=== PATIENT | female | born 1965 | race Caucasian/White ===

== ENCOUNTER 2020-01-28 19:07 | Observation (INO) | payer BC, SELFPAY ==
[2020-01-28 19:46] VITALS: BP 131/79; PULSE 102; RESP 18; TEMP 36.2; O2SAT 93; BMI 25.2
--- NOTE | 2020-01-28 21:32 | XRR_ITS ---
PROCEDURE INFORMATION: Exam: XR Left Foot Complete Exam date and time: 01/28/2020 9:50 PM Age: 54 years old Clinical indication: Pain; Foot; Left; Additional info: Pain, swelling, diabetic TECHNIQUE: Imaging protocol: XR Left foot. Views: 3 or more views. COMPARISON: No relevant prior studies available. FINDINGS: Bones/joints: No fracture. No dislocation. Mild degeneration between the head of the 1st metatarsal and the sesamoid bones. Tiny calcaneal plantar spur. Soft tissues: There is soft tissue swelling in the forefoot and dorsum of the midfoot. XR/XR foot LT min 3V* [id number] IMPRESSION: No acute osseous abnormality.
--- NOTE | 2020-01-28 21:32 | USCV_ITS ---
Cyndi Weinberg Age: 54 Gender: F : 1965 Exam Date: 01/28/2020 21:58 Ordering Phys: Mady Rubin DO Technologist: Ernie Thornton Exam Location: [facility] [place]ication: PAIN AND BURNING IN FEET Risk Factors: Smoker DIABETIC Previous Vascular Surgery: RIGHT LEFT BP: 140.0 / 80.00 BP: 140.0/ 80.00 0 0 Waveform Velocity (cm/s) Velocity (cm/s) Waveform Triphasic 116.8 Iliac Prox 109.4 Triphasic Triphasic 107.2 Iliac Mid 105.2 Triphasic Triphasic 107.2 Iliac Distal 107.3 Triphasic Biphasic 121.0 WELFARE ADMINISTRATOR 112.6 Triphasic Triphasic 104.5 SFA Prox 163.6 Triphasic Triphasic 122.3 SFA Mid 141.9 Triphasic Triphasic SFA Dist Monophasic 129.2 121.8 Triphasic 68.0 POP 83.5 Triphasic Triphasic 80.7 PUBLIC ACCOUNTANT 71.8 Biphasic Biphasic 76.0 DPA 66.0 Triphasic 1.0 SADIE 1.0 FINDINGS Normal resting ABIs bilaterally Near normal arterial Doppler waveforms and Doppler velocities No significant plaques or unstable lesions noted CONCLUSIONS No significant arterial obstruction, based on the above findings Dr Juice Bryant MD [facility] (Electronically Signed) Final Date: 30 January 2020 08:51 S
--- NOTE | 2020-01-28 21:32 | XRR_ITS ---
PROCEDURE INFORMATION: Exam: XR Right Foot Complete Exam date and time: 01/28/2020 9:49 PM Age: 54 years old Clinical indication: Pain; Foot; Right; Additional info: Pain, swelling, diabetic TECHNIQUE: Imaging protocol: XR Right foot. Views: 3 or more views. COMPARISON: No relevant prior studies available. FINDINGS: Bones/joints: No fracture. No dislocation. Mild degeneration between the head of the 1st metatarsal and the sesamoid bones. Tiny calcaneal plantar spur. Soft tissues: There is soft tissue swelling in the forefoot and dorsum of the midfoot. XR/XR foot RT min 3V* [id number] IMPRESSION: No acute osseous abnormality.
--- NOTE | 2020-01-28 21:33 | ED_ITS ---
HPI - Extremity Problem General: Chief complaint: Extremity Injury, Lower Stated complaint: feet pain/ diabetic/ swelling Time Seen by Provider: 01/28/20 21:29 Source: patient Mode of arrival: ambulatory Limitations: no limitations History of Present Illness: HPI Narrative: Mel is a nice 54-year-old female who comes in after she developed sores and blisters on her toes. Patient thinks this is secondary to wearing new shoes that did not fit well. She has a history of diabetes. Patient states that the pain just came up over the past 4 days. She has a history of diabetic neuropathy and she believes she did not feel that she is rubbing on her toes. She denies any other systemic symptoms or other complaints. Otherwise the patient states she feels good at this time. Associated symptoms: Deny chest pain, fever(s) or rash Review of Systems Const: Denies: fever(s), chills, body aches, fatigue, malaise or diaphoresis Eyes: Denies: change in vision, blurry vision, photophobia, eye discomfort, eye discharge or eye redness ENMT: Denies: throat pain, odynophagia, hoarseness, swelling of lips/tongue, ear or mastoid pain, ear discharge, change in hearing or nasal discharge Card: Denies: chest pain, palpitations, irregular heart rhythm, edema, l ightheadedness, syncope, pre-syncope, dyspnea on exertion or orthopnea Resp: Denies: dyspnea, productive cough, non-productive cough, wheezing, h emoptysis or chest congestion GI: Denies: abdominal pain, nausea, vomiting, hematemesis, coffee ground emesis, heartburn, diarrhea, constipation, GI cramping, hematochezia or melena : Denies: flank pain, dysuria, urinary frequency, urinary urgency or hematuria Musc: Denies: neck pain, back pain, extremity swelling, joint pain, joint swelling, joint redness, joint warmth or joint stiffness Skin/Breast: Denies: rash, pruritus, erythema or skin tenderness Neuro: Denies: headache(s), numbness in extremities, weakness in extremities, sensory changes, lack of coordination, difficulty walking, dizziness, vertigo, confusion, Slurred speech present or seizure-like activity Willis/Lymph: Denies: easy bruising, easy bleeding, petechiae, purpura or enlarged lymph nodes All/Imm: Denies: urticaria, throat swelling, tongue swelling, facial swelling or acute wheezing PFSH ED PFSH: Medical History Chronic back pain DM type 2 (diabetes mellitus, type 2) Hypertension Hypothyroidism Physical Exam Const: COMMON NORMALS: no acute distress, patient oriented x3, no limitations, healthy appearing and well nourished GENERAL APPEARANCE: cooperative, well kempt and well developed HENMT: COMMON NORMALS: normocephalic, atraumatic, external ears normal, EAC's normal and Normal external nose present HEAD & SCALP: normal to inspection, normocephalic and atraumatic FACE & SINUS: normal facial exam and face symmetric NOSE: Normal external nose present and Normal nares present EXTERNAL EAR: Yes external ears normal EXTERNAL AUDITORY CANAL: EAC's normal MOUTH: Normal oral and palatal mucosa present, lip normal and tongue normal Eye: COMMON NORMALS: Equal, round and reactive pupils present and conjunctivae normal GENERAL EYE: appearance normal, both eyes and all related structures ALIGNMENT: Yes alignment normal PERIORBITAL: periorbital findings normal EYELID: eyelids normal CONJUNCTIVA: Yes conjunctivae normal SCLERA: sclerae normal PUPIL: Yes Equal, round and reactive pupils present Neck/C-Spine: COMMON NORMALS: full ROM, no lymphadenopathy, supple, no meningeal signs and no JVD GENERAL: Yes normal visual inspection and Yes trachea midline Chest: COMMONS NORMALS: normal inspection of the chest and normal palpation of entire chest wall Resp: COMMON NORMALS: normal respiratory effort, No retractions, No use of accessory muscles and clear to auscultation bilaterally EFFORT & INSPECTION: Yes able to speak in complete sentences and Yes symmetric chest movement AUSCULTATION: clear to auscultation bilaterally, no crackles, no rales, no rhonchi and no wheezes Cardio: COMMON NORMALS: no JVD, regular rate, regular rhythm, S1 normal heart sound present and S2 normal heart sound present RATE: regular rate RHYTHM: regular rhythm HEART SOUNDS: S1 normal heart sound present, S2 normal heart sound present, no click, no gallops, no murmurs, no rubs and abnormal split S2 GI: COMMON NORMALS: Soft to palpation and No hepatosplenomegaly present PALPATION: Yes Soft to palpation, No Tenderness to palpation present (GI), No Guarding due to palpation present (GI), No Rigid due to palpation, Yes No hepatosplenomegaly present, No Hernia present, No Palpable mass present and No Pulsatile mass present : COMMON NORMALS: Yes no CVA tenderness BLADDER/KIDNEY EXAM: Yes no CVA tenderness EXTERNAL FEMALE EXAM: No Hernia present Back/Pelvis: COMMON NORMALS: no CVA tenderness, thoracic and lumbar spine nor mal to inspection, no thoracic nor lumbar tenderness and thoraco-lumbar ROM normal Extremity: COMMON NORMALS: full ROM, capillary refill normal, no joint enlargement, no clubbing, cyanosis or edema and no calf tenderness NARRATIVE EXTREMITY EXAM: Right foot with infection of the first 3 toes, left foot with infection and cellulitis of the second toe. Neuro: COMMON NORMALS: patient oriented x3, CN's II-XII intact bilaterally, moves all extremities, no focal motor deficits and no sensory deficits noted MENINGEAL SIGNS: Yes no meningeal signs SPEECH: speech normal Psych: COMMON NORMALS: mental status grossly normal, Normal thought process present, cooperative, normal affect, speech normal and activity/motor behavior normal APPEARANCE: Yes well kempt SPEECH: Yes normal speech THOUGHT PRO CESS: Normal thought process present Skin: COMMON NORMALS: no rashes or lesions noted, turgor normal, no jaundice, no petechiae and no mottling GENERAL SKIN EXAM: no rashes or lesions noted and turgor normal Course Vital Signs: Vital signs: Vital Signs Temperature 97.1 F L 01/28/20 19:46 Pulse Rate 102 H 01/28/20 19:46 Respiratory Rate 18 01/28/20 19:46 Blood Pressure 131/79 01/28/20 19:46 Pulse Oximetry 93 01/28/20 19:46 MDM - Extremity (Nontraumatic) MDM Narrative: Medical decision making narrative: Patient has uncontrolled hyperglycemia but I see no evidence of DKA. She does appear to have a significant soft tissue infections that have come up acutely. Accommodation and diabetes plus this aggressive infection of believe she will need to be hospitalized. Her lactate is elevated. I reviewed the case in full with Dr. Larkin and she is agreeable to come see the patient for admission. Lab Data: Attestation: I reviewed the patient's lab results. Labs: Lab Results 01/28/20 01/28/20 01/28/20 Range/Units 20:22 21:40 21:40 WBC 5.9 (4.0-10.0) 10^3/ uL RBC 4.62 (4.1-5.3) 10^6/u L Hgb 13.7 (11.5-15.3) g/dL Hct 40.9 (37.0-47.0) % MCV 88.5 (81-99) fL MCH 29.7 (28.0-34.0) pg MCHC 33.5 (30.0-36.0) g/dL RDW 12.7 (12.1-15.1) % Plt Count 131 (130-400) 10^3/c mm MPV 10.9 H (7.4-10.4) fL Neut % (Auto) 60.2 % Lymph % (Auto) 28.1 % [place] % (Auto) 6.9 % Eos % (Auto) 3.6 % Baso % (Auto) 0.7 % Neut # (Auto) 3.56 (1.8-7.7) 10^3/u L Lymph # (Auto) 1.7 (0.8-4.8) 10^3/u L [place] # (Auto) 0.4 (0.2-0.9) 10^3/u L Eos # (Auto) 0.2 (0.0-0.8) 10^3/u L Baso # (Auto) 0.0 (0.0-0.1) 10^3/u L Nucleated RBC % (a uto) 0 % Nucleated RBCs # 0.0 /100WBC PT 12.30 (12.1-14.9) SECO NDS INR 0.89 (0.8-1.2) Specimen Type Arterial Sample Site Radial, right ABG pH 7.43 (7.35-7.45) ABG pCO2 34.5 L (35-45) mmHg ABG pO2 46.7 L (80.0-100.0) mmH g ABG HCO3 23.0 (22-26) mmol/L ABG Base Excess -0.7 (-2.0-2.0) mmol/ L Tirso Test Pos Hematocrit 44.2 (37-47) % O2 Delivery Device Room air FiO2 21.0 % Construction Project Administrator ID [place] Sodium (136-145) mmol/L Potassium (3.5-5.1) mmol/L Chloride (98-107) mmol/L Carbon Dioxide (22-29) mmol/L Anion Gap (5-19) BUN (6-20) mg/dL Creatinine (0.5-0.9) mg/dL GFR Calculation (90-130) mL/min Glucose (65-115) mg/dL Calculated Osmolal ity (285-295) mOsm/k g Lactic Acid (0.5-2.2) mmol/L Calcium (8.5-10.5) mg/dL Total Bilirubin (0.15-1.2) mg/dL AST (0-32) U/L ALT (0-33) U/L Alkaline Phosphata se (35-105) IU/L Total Protein (6.6-8.7) g/dL Albumin (3.5-5.2) g/dL Globulin (1.3-4.6) g/dL Serum Ketones (Negative) 01/28/20 01/28/20 01/28/20 Range/Units 21:40 21:40 21:40 WBC (4.0-10.0) 10^3/ uL RBC (4.1-5.3) 10^6/u L Hgb (11.5-15.3) g/dL Hct (37.0-47.0) % MCV (81-99) fL MCH (28.0-34.0) pg MCHC (30.0-36.0) g/dL RDW (12.1-15.1) % Plt Count (130-400) 10^3/c mm MPV (7.4-10.4) fL Neut % (Auto) % Lymph % (Auto) % [place] % (Auto) % Eos % (Auto) % Baso % (Auto) % Neut # (Auto) (1.8-7.7) 10^3/u L Lymph # (Auto) (0.8-4.8) 10^3/u L [place] # (Auto) (0.2-0.9) 10^3/u L Eos # (Auto) (0.0-0.8) 10^3/u L Baso # (Auto) (0.0-0.1) 10^3/u L Nucleated RBC % (a uto) % Nucleated RBCs # /100WBC PT (12.1-14.9) SECO NDS INR (0.8-1.2) Specimen Type Sample Site ABG pH (7.35-7.45) ABG pCO2 (35-45) mmHg ABG pO2 (80.0-100.0) mmH g ABG HCO3 (22-26) mmol/L ABG Base Excess (-2.0-2.0) mmol/ L Tirso Test Hematocrit (37-47) % O2 Delivery Device FiO2 % Construction Project Administrator ID Sodium 138 (136-145) mmol/L Potassium 3.8 (3.5-5.1) mmol/L Chloride 103 (98-107) mmol/L Carbon Dioxide 25 (22-29) mmol/L Anion Gap 13.8 (5-19) BUN 12 (6-20) mg/dL Creatinine 0.8 (0.5-0.9) mg/dL GFR Calculation 74.7 L (90-130) mL/min Glucose 570 H* (65-115) mg/dL Calculated Osmolal ity 308 H (285-295) mOsm/k g Lactic Acid 3.4 H (0.5-2.2) mmol/L Calcium 9.1 (8.5-10.5) mg/dL Total Bilirubin 0.2 (0.15-1.2) mg/dL AST 17 (0-32) U/L ALT 31 (0-33) U/L Alkaline Phosphata se 73 (35-105) IU/L Total Protein 6.3 L (6.6-8.7) g/dL Albumin 3.8 (3.5-5.2) g/dL Globulin 2.5 (1.3-4.6) g/dL Serum Ketones Negative (Negative) Imaging Data^: Right foot: Attestation: I personally reviewed and interpreted this imaging study as follows: My impression: No evidence of osteomyelitis Left foot: Attestation: I personally reviewed and interpreted this imaging study as follows: My impression: No evidence of osteomyelitis Bilateral lower extremity arterial Doppler: My impression: Tech interpretation -please see formal report ABIs bilaterally 1.0 CXR: Attestation: I personally reviewed and interpreted this imaging study as follows: My impression: No acute cardiopulmonary findings Discharge Plan Discharge Patient Disposition: Placed in Observation Clinical Impression: Diabetic foot infection, Uncontrolled diabetes mellitus, Acidosis, lactic Condition: Stable Referrals: NOT ON FILE,DOCTOR [Primary Care Provider] - Coding Level of Care Code ED Global Compensation Manager for Chg Fwd Exam Comprehensive
[2020-01-28 21:48] LABS: Basophils % 0.7 %; Eosinophils # 0.2 10^3/uL (0.0-0.8); Eosinophils % 3.6 %; Hematocrit 40.9 % (37.0-47.0); Hemoglobin 13.7 g/dL (11.5-15.3); Lymphocytes # 1.7 10^3/uL (0.8-4.8); Lymphocytes % 28.1 %; Mean Corpuscular HGB Conc 33.5 g/dL (30.0-36.0); Mean Corpuscular Hemoglobin 29.7 pg (28.0-34.0); Mean Corpuscular Volume 88.5 fL (81-99); Mean Platelet Volume 10.9 fL (7.4-10.4); Monocytes # 0.4 10^3/uL (0.2-0.9); Monocytes % 6.9 %; Neutrophils # 3.56 10^3/uL (1.8-7.7); Neutrophils % 60.2 %; Nucleated Red Blood Cells % 0 %; Platelet Count 131 10^3/cmm (130-400); Red Blood Count 4.62 10^6/uL (4.1-5.3); Red Cell Distribution Width 12.7 % (12.1-15.1); White Blood Count 5.9 10^3/uL (4.0-10.0)
[2020-01-28 21:59] LABS: INR 0.89 (0.8-1.2)
[2020-01-28 22:03] LABS: Lactic Sepsis W/Reflex 3.4 mmol/L (0.5-2.2)
[2020-01-28 22:04] LABS: Alanine Aminotransferase 31 U/L (0-33); Albumin Level 3.8 g/dL (3.5-5.2); Alkaline Phosphatase 73 IU/L (35-105); Anion Gap 13.8 (5-19); Aspartate Amino Transferase 17 U/L (0-32); Blood Urea Nitrogen 12 mg/dL (6-20); Calcium 9.1 mg/dL (8.5-10.5); Carbon Dioxide 25 mmol/L (22-29); Chloride 103 mmol/L (98-107); Globulin 2.5 g/dL (1.3-4.6); Glomerular Filtration Rate 74.7 mL/min (90-130); Osmolality Calculated 308 mOsm/kg (285-295); Potassium 3.8 mmol/L (3.5-5.1); Sodium 138 mmol/L (136-145); Total Bilirubin 0.2 mg/dL (0.15-1.2); Total Protein 6.3 g/dL (6.6-8.7)
[2020-01-28 22:06] LABS: Glucose 570 mg/dL (65-115)
[2020-01-28 22:38] LABS: ABG PCO2 34.5 mmHg (35-45); ABG PH Result 7.43 (7.35-7.45); Arterial Blood Gas Hematocrit 44.2 % (37-47); Base Excess ABG -0.7 mmol/L (-2.0-2.0); Blood Gas Allen Test Pos; Blood Gas Operator Identificat MONRO; Blood Gas Sample Site Radial, right; Blood Gas Sample Type Arterial; Oxygen Device ROOM AIR; PO2 ABG 46.7 mmHg (80.0-100.0)
--- NOTE | 2020-01-28 22:42 | XRR_ITS ---
PROCEDURE INFORMATION: Exam: XR Chest, 1 View Exam date and time: 01/28/2020 10:58 PM Age: 54 years old Clinical indication: Other: Swelling; Additional info: Low pulse ox, swelling, HX of diabetes, foot sores TECHNIQUE: Imaging protocol: XR of the chest Views: 1 view. COMPARISON: No relevant prior studies available. FINDINGS: Lungs: No pneumonia or pulmonary edema. Pleural space: No pleural effusion or pneumothorax. Heart/Mediastinum: The cardiac silhouette is not enlarged. The mediastinal contours are normal. Bones/joints: There is a curvature of the thoracic spine convex to the right. Prior anterior cervical fusion. Soft tissues: Small left epicardial fat pad. XR/XR chest 1V portable [id number] IMPRESSION: No acute abnormality.
[2020-01-28] MEDS: piperacillin-tazobactam 3.375 GM in sodium chloride 0.9% (plus) 50 ML IV (22:45)
[2020-01-28] MEDS: sodium chloride 0.9% 1,000 ML 100 ML IV (22:45)
[2020-01-28 22:49] LABS: Ketone (Acetest) Serum Negative (Negative)
[2020-01-28] MEDS: HYDROcodone-acetaminophen 5-325 mg Tablet 1 TAB PO (23:05)
[2020-01-28] MEDS: ondansetron 2 mg/ML SDV 2 mL 4 MG IVP (23:25)
[2020-01-28 23:31] LABS: Reflex Lactate Order REFLEX LACTIC ORDERD
[2020-01-28 23:41] LABS: Add Urine Microscopic? YES; Bilirubin Urine Neg (NEGATIVE); Blood Urine Neg (Negative); Glucose Urine UA 4+ (Normal); Ketones Urine Negative (Negative); Leukocyte Esterase Urine 1+ (Negative); Nitrate Urine Negative (Negative); Protein Urine Neg (Negative); RBC Urine 0-4 /hpf (0-2); Specific Gravity, Urine 1.015 (1.005-1.030); Urine Appearance Clear (CLEAR); Urine Color Yellow (Yellow); Urobilinogen Urine Norm (Negative); pH Urine 5 (5-7)
[2020-01-28 23:42] LABS: Bacteria Urine TRACE; Squamous Epithelial Cell Urine 0-4 (0-5)
--- NOTE | 2020-01-28 23:51 | P.HP_ITS ---
Providers/Chief Complaint Admitting Physician: Mel Larkin MD Primary Care Provider: Dr. Rene Cook ([place]) Chief Complaint: feet pain/ diabetic/ swelling History of Present Illness Cyndi Weinberg is a 54 year old female with PMHx noted below presents with complaints of bilateral foot pain, blisters particularly on the left foot that she noted earlier today. She is originally from [place] but is in [place] visiting her sister. States that they were shopping yesterday, spent most of the day on her feet, wearing shoes that were new to her. She felt fine during the day but upon returning home and taking of the shoes she noted what looks like blood blisters on the left foot and areas of pressure around the toes of the right foot as well. She did not notice any drainage but she did have significant pain and noted swelling of both feet particularly around the ankles. She does report having had some intermittent swelling of her lower extremities even when she is not spending a lot of time on her feet. She is a poorly controlled diabetic and states that her blood sugars at home range between 250 and 400. She states that she has had significant difficulty getting her blood glucose under control despite multiple therapies including insulin. She does n ot recall having had issues with ulcers in the past. She denies any fever/chills, abdominal pain, nausea/vomiting, chest pain, increased shortness of breath, increased cough, contact with any known COVID-19 positive individuals. She is unsure of all of her medications and med rec is currently pending. White count is normal, hemoglobin is also normal, electrolytes and renal function are normal, she is quite hyperglycemic with a blood sugar of 570 and has received 10 units of insulin. Pending repeat check of her glucose. pH is normal on her ABG, serum ketones are negative. She is quite hypertensive currently, mildly tachycardic but afebrile. She has received a dose of vancomycin and Zosyn. ER physician has contacted Dr. Gonzalez who will see the patient tomorrow. For now we will continue IV antibiotics pending further evaluation. She has had imaging done, reports are pending. Review of Systems Const: Denies: fever(s), chills, change in appetite or fatigue Eyes: Denies: change in vision ENMT: Reports: dry mouth Card: Reports: swelling of feet/ankles; Denies: chest pain, lightheadedness, dyspnea on exertion or orthopnea Resp: Reports: dyspnea (chronic, no change) and non-productive cough (chronic, unchanged); Denies: productive cough GI: Denies: abdominal pain, nausea, vomiting, hematemesis or hematochezia : Denies: difficulty voiding, dysuria or hematuria Musc: Reports: back pain (chronic) and other (bilateral foot pain) Skin/Breast: Reports: erythema and other (blisters on L foot); Denies: rash Neuro: Reports: numbness in extremities (chronic neuropathy) and difficulty walking Psych: Denies: anxiety Medications/Allergies Allergies Allergy/AdvReac Type Severity Reaction Status Date / Time No Known Allergies Allergy Verified 01/28/20 19:46 PFSH Acute PFSH: Medical History (Updated 01/29/20 @ 00:20 by Mel Larkin MD) Chronic back pain DM type 2 (diabetes mellitus, type 2) -insulin dependent, poorly controlled Hypertension Hypothyroidism Peripheral neuropathy Spinal stenosis Surgical History (Updated 01/29/20 @ 00:05 by Mel Larkin MD) H/O neck surgery History of endometrial ablation S/P cholecystectomy Family History (Updated 01/29/20 @ 00:07 by Mel Larkin MD) Grandmother CAD (coronary artery disease) Stroke Sister Diabetes Mother Cancer colon cancer Grandfather Stroke Family/Other Cancer paternal aunt-breast cancer Father Diabetes Other Dementia Social History (Updated 01/29/20 @ 00:07 by Mel Larkin MD) Smoking and tobacco status: current every day smoker cigarettes Packs smoked per day: 1 Alcohol intake: never Substance/Drug Use: never Lives independently: Yes Vitals/I&O/Wt Last Vital Signs Temp 97.1 F L 01/28/20 19:46 Pulse 102 H 01/28/20 19:46 Resp 18 01/28/20 19:46 BP 131/79 01/28/20 19:46 Pulse Ox 93 01/28/20 19:46 Weight last 48 hrs Weight 79.832 kg Physical Exam Const: COMMON NORMALS: no acute distress, patient oriented x3 and alert GENERAL APPEARANCE: cooperative and comfortable ORIENTATION/CONSCIOUSNESS: Yes awake HENMT: COMMON NORMALS: normocephalic, atraumatic and hearing grossly normal bi laterally HEAD & SCALP: normocephalic and atraumatic MOUTH: moist mucous membranes abnormal Details: parched Eye: COMMON NORMALS: Equal, round and reactive pupils present, EOMs intact bilaterally and conjunctivae normal CONJUNCTIVA: Yes conjunctivae normal PUPIL: Yes Equal, round and reactive pupils present Neck/C-Spine: COMMON NORMALS: full ROM GENERAL: Yes normal visual inspection and Yes trachea midline Resp: COMMON NORMALS: normal respiratory effort, No retractions and No use of accessory muscles EFFORT & INSPECTION: Yes able to speak in complete sentences, Yes symmetric chest movement and No tachypneic AUSCULTATION: diminished lung sounds bilateral OTHER: -on RA Cardio: COMMON NORMALS: regular rate, regular rhythm, S1 normal heart sound pr esent, S2 normal heart sound present and No murmurs present (Cardio) RATE: tachycardic (mildly) RHYTHM: regular rhythm HEART SOUNDS: S1 normal heart sound present and S2 normal heart sound present GI: COMMON NORMALS: Normal to inspection, nondistended, normoactive bowel sounds present, Soft to palpation and non-tender PALPATION: Yes Soft to palpation Extremity: NARRATIVE EXTREMITY EXAM: -bilateral foot edema, L > R -noted blood blisters on L foot, area of purulence (discrete) on 2nd digit with minimal drainage; tenderness to palpation -noted areas of pressure on R foot Neuro: COMMON NORMALS: patient oriented x3, moves all extremities, no focal motor deficits and no sensory deficits noted SENSORIUM/ORIENTATION: Yes alert OTHER: -decreased sensation in bilateral feet Psych: COMMON NORMALS: mental status grossly normal, Normal thought process present, cooperative, normal affect and speech normal SPEECH: Yes normal speech THOUGHT PROCESS: Normal thought process present Skin: COMMON NORMALS: no rashes or lesions noted, no jaundice, no petechiae and no mottling GENERAL SKIN EXAM: no rashes or lesions noted Data : 01/28/20 21:40 01/28/20 21:40 A&P Assessment and plan (1) Diabetic foot infection: -Noted lesions on bilateral feet, worse on the left -Follow-up imaging reports -Received dose of vancomycin and Zosyn in the ER, will continue these broad- spectrum IV antibiotics -order blood cx -noted LE edema, trial of lasix, LE elevation -Podiatry consult requested -pain control as needed -Noted lactic acidosis Status: Acute (2) Hypertension: -monitor vital signs -resume oral antihypertensives once med rec complete Status: Chronic Qualifiers: Hypertension type: essential hypertension Qualified Code(s): I10 - Essential (primary) hypertension (3) Chronic back pain: -is on chronic narcotics -pending med rec, can resume if appropriate once complete Status: Chronic Qualifiers: Back pain location: low back pain Back pain laterality: bilateral Sciatica presence: with sciatica Sciatica laterality: bilateral sciatica Qualified Code(s): M54.42 - Lumbago with sciatica, left side; M54.41 - Lumbago with sciatica, right side; G89.29 - Other chronic pain (4) Hypothyroidism: -check TSH -resume thyroid replacement Status: Chronic Qualifiers: Hypothyroidism type: unspecified Qualified Code(s): E03.9 - Hypothyroidism, unspecified (5) DM type 2 (diabetes mellitus, type 2): -poorly controlled -complicated by peripheral neuropathy -check A1c -quite hyperglycemic in ED, has received 10 units of insulin; not in DKA (no serum ketones, normal pH on ABG) -pending med rec, resume insulin regimen -consistent carb diet Status: Chronic Qualifiers: Diabetes mellitus [facility] use: with [facility] use Diabetes mellitus complication status: with neurologic complications Diabetes mellitus complication detail: with polyneuropathy Qualified Code(s): E11.42 - Type 2 diabetes mellitus with diabetic polyneuropathy; Z79.4 - senior living (current) use of insulin Additional A&P Information -lactic acidosis: 3.4->2.8; likely secondary to infection as well as hyperg lycemia -UTI: UA positive for LE/trace bacteria/pyuria; on abx -DVT ppx with SCDs, no AC for now pending decision on further wound management -Dispo: home -Code status: FULL code Attestations Medical Necessity Statement*: Cyndi Weinberg's hospital stay will require greater than 2 midnights for management of bilateral lower extremity diabetic foot infection requiring IV antibiotics, pending podiatry evaluation; as well as management of significant hyperglycemia. Time Spent in Patient Care: Greater than 35 minutes (>than 50% of time spent in counselling and/or direct pt care on unit) . Coding Level of Care Code Acute Mems Engineer for Chg Fwd Exam Comprehensive Diagnoses Diabetic foot infection E11.628; L08.9 Hypertension I10 Hypertension type: essential hypertension Chronic back pain M54.42; M54.41; G89.29 Back pain location: low back pain Back pain laterality: bilateral Sciatica presence: with sciatica Sciatica laterality: bilateral sciatica Hypothyroidism E03.9 Hypothyroidism type: unspecified DM type 2 (diabetes mellitus, type 2) E11.42; Z79.4 Diabetes mellitus swimming coach insulin use: with swimming coach use Diabetes mellitus complication status: with neurologic complications Diabetes mellitus complication detail: with polyneuropathy
[2020-01-28 23:58] LABS: Lactic Acid level (Lactate) 2.8 mmol/L (0.5-2.2)
[2020-01-29] VITALS (16 sets, daily range): BP systolic 120–157; BP diastolic 70–101; PULSE 64–102; RESP 16–20; TEMP 36.2–36.9; O2SAT 92–99
[2020-01-29] MEDS: FUROsemide 10 mg/mL SDV 2mL 20 MG IVP (01:02)
[2020-01-29] MEDS: oxyCODONE-APAP 10-325 mg Tablet 1 TAB PO ×3 (01:35→14:40)
[2020-01-29 01:41] LABS: Glucose Point of Care 395 mg/dL (70-110)
[2020-01-29] MEDS: gabapentin 400 mg Capsule 800 MG PO ×3 (01:58→14:40)
[2020-01-29] MEDS: ipratropium-albuterol 3 mL Neb INHALATION (02:38)
--- NOTE | 2020-01-29 02:41 | PC.PHAR ---
Pharmacokinetic dosing service Date: 01/29/20 Time: 240 Objective: Patient: Cyndi Weinberg Floor: 264-1 Age: 54 yo Serum creatinine: 0.8 mg/dL Height: 70.0 Inches Weight (kg): 79.832 Diagnosis: Relevant medical/social history: Cultures and sensitivities: Other labs: Assessment: IBW (kg): 68.50 Dosing wt(kg): 79.832 Estimated Creatinine clearance (ml/min): 86.9 CRCL method: Cockcroft and Gault using ibw(default). Drug selected: Vancomycin Loading dose (mg): 0 Vd (liters): 71.8 (factor used: 0.9 L/kg) Donato (hr-1): 0.077 Half life (hrs): 9.00 Recommended dose: 1500 mg Interval: 12 hrs Infusion time (hrs): 1.5 Predicted peak (mcg/mL): 32.7 Predicted trough (mcg/mL): 14.57 Total body weight is being used for vancomycin dosing. Renal function is stable [ ] /unstable [ ] Recommendations: Give Vancomycin 1500 mg q 12 hrs with an expected Cpeak of 32.7 mcg/ml and an expected Ctrough of 14.57 mcg/ml Renal dosing of other antibiotics (review renal dosing of other medications and list guidelines here): Thank you for the consult, will continue to follow. Signature: Dasha Hodgson [facility]
--- NOTE | 2020-01-29 06:04 | PM.CONSULT ---
Providers/Reason For Consult Consulting Physican/Specialty*: Deondre Gonzalez D.P.M. Reason for Consult*: Diabetic foot wound left and right foot. Attending Physician: Mel Larkin MD History of Present Illness History of Present Illness Cyndi Weinberg is a 54 year old uncontrolled diabetic female with a last A1c of approximately 13. She lives north of [facility] and is visiting her sister in [place]. She spent the majority of her day yesterday walking and was in a new pair of tennis shoes. End of the day she noticed blisters at her left forefoot and right forefoot. She became concerned and her family advised her to report to the emergency department she is diabetic. Her is currently under the care of Dr. Tigre Campa located in [facility], her sees him for a wound care in regards to his diabetic foot ulcer. She states that she would like to follow-up with Dr. Campa when she returns home on 02/04/2020. Patient denies any subjective nausea, vomiting, fever, chills, shortness of breath or chest pain. Review of Systems General: Reports: 10 or more systems reviewed and unremarkable except in HPI and below Const: Denies: fever(s) or chills Card: Denies: chest pain or palpitations Resp: Denies: productive cough GI: Denies: abdominal pain, nausea or vomiting : Denies: flank pain Musc: Reports: extremity swelling, joint pain, joint stiffness, limited range of motion and deformity Skin/Breast: Reports: erythema, sores, nail changes and change in hair; Denies: rash Neuro: Reports: numbness in extremities, sensory changes and difficulty walking Psych: Denies: suicidal ideation Willis/Lymph: Denies: easy bruising Meds/Allergies Home Medications and Allergies Home Medications Medication Instructions Recorded Confirmed Last Taken Type albuterol sulfate 2 puff INHALATION Q4H PRN 01/29/20 01/29/20 Unknown History chlorpheniramine maleate 4 - 8 mg PO PRN 01/29/20 01/29/20 Unknown History [ChlorTabs] duloxetine 30 mg PO DAILY 01/29/20 01/29/20 Unknown History aczbufnkpfb-fmodgeaep-qkdkdwmz 1 inh INHALATION DAILY 01/29/20 01/29/20 Unknown History [Trelegy Ellipta] gabapentin 800 mg PO QID 01/29/20 01/29/20 Unknown History indomethacin 50 mg PO BID 01/29/20 01/29/20 Unknown History insulin aspart (niacinamide) See Rx Instructions .ROUTE .COMPLEX 01/29/20 01/29/20 Unknown History [Fiasp FlexTouch U-100 Insulin] insulin degludec [Tresiba 80 unit SUBCUT DAILY 01/29/20 01/29/20 Unknown History FlexTouch U-200] levothyroxine 175 mcg PO DAILY 01/29/20 01/29/20 Unknown History liothyronine 12.5 mcg PO DAILY 01/29/20 01/29/20 Unknown History oxycodone 10 mg PO QID PRN 01/29/20 01/29/20 Unknown History tizanidine 4 mg PO Q8H PRN 01/29/20 01/29/20 Unknown History Allergies Allergy/AdvReac Type Severity Reaction Status Date / Time morphine Allergy ADR-Itching Verified 01/29/20 08:14 Current Medications Current Medications Generic Name Dose Route Start Last Admin Trade Name Freq PRN Reason Stop Dose Admin Oxycodone/Acetaminophen 1 tab 01/29/20 00:55 01/29/20 01:35 Percocet 10-325 Mg PO 1 tab Q6H PRN Administration SEVERE PAIN PFSH Acute PFSH: Medical History (Updated 01/29/20 @ 08:04 by Deondre Gonzalez DPM) Chronic back pain DM type 2 (diabetes mellitus, type 2) -insulin dependent, poorly controlled Hypertension Hypothyroidism Peripheral neuropathy Spinal stenosis Surgical History (Updated 01/29/20 @ 00:05 by Mel Larkin MD) H/O neck surgery History of endometrial ablation S/P cholecystectomy Family History (Updated 01/29/20 @ 00:07 by Mel Larkin MD) Grandmother CAD (coronary artery disease) Stroke Sister Diabetes Mother Cancer colon cancer Grandfather Stroke Family/Other Cancer paternal aunt-breast cancer Father Diabetes Other Dementia Social History (Updated 01/29/20 @ 00:07 by Mel Larkin MD) Smoking and tobacco status: current every day smoker cigarettes Packs smoked per day: 1 Alcohol intake: never Lives independently: Yes Vitals/I&O/Wt Last Vital Signs Temp 98.1 F 09/09/20 04:00 Pulse 78 01/29/20 04:00 Resp 20 H 01/29/20 04:00 BP 120/72 01/29/20 04:00 Pulse Ox 94 01/29/20 04:00 Weight last 48 hrs Weight 176 lb Physical Exam Narrative: EXAM NARRATIVE: GENERAL: Patient is alert and oriented ?3 and in no acute distress. The following is a focused bilateral lower extremity exam. VASCULAR: Dorsalis pedis and posterior tibial arteries palpable. Capillary refill time less than 3 seconds to the distal hallux bilaterally. Calf is supple and nontender proximally and distally. Diminished hair growth at bilateral feet and legs. No significant edema to the lower extremities. NEUROLOGICAL: Protective sensation intact 3/10 sites, tested with [place] Mehrdad monofilament to bilateral feet. DERMATOLOGICAL: Bullae to left great toe, second toe and third toe and right second toe. Localized erythema without proximal lymphangitic streaking. Bullae x4 with Kallie intact. Lower extreme integument has decreased texture and turgor has shiny appearance with some atrophy. Toenails 1 through 5 bilaterally elongated, thickened and discolored with subungual debris. MUSCULOSKELETAL: Reducible hammertoe contractures with sagittal plane dominance toes 2 through 5 bilaterally. Mild hallux valgus deformity bilaterally hallux is not track bound. First metatarsal phalangeal joint dorsiflexion 45 degrees bilaterally. Ankle joint dorsiflexion 5 degrees beyond neutral bilaterally. Muscle strength 5 out of 5 in all 3 cardinal planes of bilateral foot and ankle. No pain with posterior calf squeeze bilaterally. Data Micro: Micro: Microbiology 01/29/20 00:35 Blood Culture - Pr eliminary Blood SPECIMEN [facility] A&P Assessment and plan (1) Diabetic peripheral neuropathy: Status: Acute (2) Chronic ulcer of toe of right foot with fat layer exposed: Status: Acute (3) Chronic ulcer of toe of left foot with fat layer exposed: Status: Acute (4) Onycholysis: Status: Acute Patient examined and evaluated, findings and treatment options discussed with patient at length. Patient developed wounds to her left and right from walking in a new pair shoes the past few days. Onycholysis of toenails 2 and 3 on the left and 2 on the right. X-rays negative for osteomyelitis, foreign body or soft tissue emphysema. Patient is afebrile, no leukocytosis. Recommended excisional debridement of the wounds and the maida of the bullae. After verbal consent debridement was performed and entire toenails of second third toe left foot and second toe right foot were removed with sterile instrumentation with devitalized epidermis and dermis sharply debrided underlying. Wound beds were viable with granular base did not extend to bone, deep fascia or tendon. Bullae at the medial aspect of the left great toe removed. All wounds were then dressed with Betadine, Telfa, sterile gauze, Kerlix and noncompressive wrap. Will contact [employer] for [employer]co shoes. Patient okay for discharge from podiatry standpoint. Recommended low levels of activity and follow-up with Dr. Campa in [facility]. I will send Bactrim to [facility] in [place] twice daily for 14 days. Patient to follow-up in podiatry clinic 02/04/2020 at 11:45 AM. Patient will follow-up with her local harbor master Dr. Campa in [place] when she returns, recommended follow-up with her primary care as well as customer account representative. Procedure: After obtaining verbal consent chlorhexidine scrub utilized at the right and left forefoot. No anesthesia required secondary to neuropathy. Sterile nail nippers and dermal curette utilized to perform toenail avulsion at left second and third toenails as well as right second toenail these were loose and largely detached, these were removed in total and passed from the field. Hemostasis achieved via manual pressure. Areas were flushed with saline and dressed with Betadine, Telfa, gauze and Sathya as well as [place] wrap at the left foot. Coding Level of Care Code Acute Manager Credit Risk for g Fwd Diagnoses Diabetic peripheral neuropathy E11.42 Chronic ulcer of toe of right foot with fat layer exposed L97.512 Chronic ulcer of toe of left foot with fat layer exposed L97.522 Onycholysis L60.1 Comment Performed nail avulsion CPT code 84105 ?1 and CPT code 92198 ?2 also new patient EM CPT 13483
[2020-01-29] MEDS: piperacillin-tazobactam 3.375 GM in sodium chloride 0.9% (plus) 50 ML IV (06:30)
[2020-01-29 07:00] LABS: Glucose Point of Care 339 mg/dL (70-110)
[2020-01-29] MEDS: lisinopril 10 mg Tablet PO (08:25)
[2020-01-29 10:58] LABS: Basophils # 0.1 10^3/uL (0.0-0.1); Basophils % 0.8 %; Eosinophils # 0.2 10^3/uL (0.0-0.8); Eosinophils % 2.8 %; Hematocrit 41.8 % (37.0-47.0); Hemoglobin 14.3 g/dL (11.5-15.3); Lymphocytes # 1.3 10^3/uL (0.8-4.8); Lymphocytes % 21.5 %; Mean Corpuscular HGB Conc 34.2 g/dL (30.0-36.0); Mean Corpuscular Hemoglobin 29.9 pg (28.0-34.0); Mean Corpuscular Volume 87.3 fL (81-99); Mean Platelet Volume 11.2 fL (7.4-10.4); Monocytes # 0.4 10^3/uL (0.2-0.9); Monocytes % 6.3 %; Neutrophils # 4.08 10^3/uL (1.8-7.7); Neutrophils % 68.3 %; Nucleated Red Blood Cells % 0 %; Platelet Count 128 10^3/cmm (130-400); Red Blood Count 4.79 10^6/uL (4.1-5.3); Red Cell Distribution Width 12.4 % (12.1-15.1)
[2020-01-29 11:09] LABS: Estmated Average Glucose 263; Hemoglobin A1C 10.8 % (4.0-6.0)
[2020-01-29 11:14] LABS: Glucose Point of Care 331 mg/dL (70-110)
[2020-01-29 11:16] LABS: Anion Gap 14.2 (5-19); Blood Urea Nitrogen 10 mg/dL (6-20); Calcium 8.9 mg/dL (8.5-10.5); Carbon Dioxide 27 mmol/L (22-29); Chloride 102 mmol/L (98-107); Glomerular Filtration Rate 87.2 mL/min (90-130); Glucose 349 mg/dL (65-115); Osmolality Calculated 300 mOsm/kg (285-295); Potassium 3.2 mmol/L (3.5-5.1); Sodium 140 mmol/L (136-145)
[2020-01-29 11:24] LABS: Thyroid Stimulating Hormone 3.61 uIU/mL (0.27-4.20)
[2020-01-29] MEDS: potassium chloride ER 10 mEq Tablet 40 MEQ PO (13:23)
[2020-01-29] MEDS: acetaminophen 325 mg Tablet 650 MG PO (13:25)
--- NOTE | 2020-01-29 13:32 | P.DS_ITS ---
Discharge Providers Date of Admission: 01/29/20 00:55 Date of Discharge: January 29, 2020 Attending Provider at Admission: Mel Larkin MD Attending Provider at Discharge: Oskar Fitch MD Diagnoses at Discharge Discharge Diagnosis (1) Diabetic peripheral neuropathy: Status: Acute (2) Chronic ulcer of toe of right foot with fat layer exposed: Status: Acute (3) Chronic ulcer of toe of left foot with fat layer exposed: Status: Acute (4) Onycholysis: Status: Acute Reason for Visit Reason for Visit: feet pain/ diabetic/ swelling Hospital Course Hospital Course: Cyndi is a 54-year-old white female who presented to the hospital with a diabetic foot ulcer, primarily on the left foot but affecting the right foot slightly as well. She had had no fevers. She was admitted for concern of diabetic foot ulcer, and placed on IV antibiotics. Podiatry evaluated her the next day, did debridement and thought she could be discharged home on Bactrim with follow-up with podiatry next week. Patient had no evidence of sepsis or systemic infection or significant cellulitis. As she is being discharged on Bactrim we will hold off on starting lisinopril currently but this should be considered on follow-up. Will need a BMP on her follow-up. Physical Exam Narrative: EXAM NARRATIVE: General exam no apparent distress Cardiovascular regular rate and rhythm without murmur Lungs clear Abdomen is soft nontender with positive bowel sounds Extremities dressings noted Discharge Data Data Completed and Pending: Completed Studies During Hospitalization Category Date Time Status XR chest 1V vin ble [id number] Stat Exams 01/28/20 22:42 Completed XR foot LT min 3V * [id number] Stat Exams 01/28/20 21:32 Completed XR foot RT min 3V * [id number] Stat Exams 01/28/20 21:32 Completed Pending at discharge Category Date Time Status Blood Culture Sta t Lab 01/29/20 10:12 Results Vancomycin Trough Timed Lab 01/30/20 00:00 [place] [id number] Stat Ultrasound 01/28/20 21:32 Taken Labs from last 24 hours 01/29/20 01/29/20 01/29/20 10:32 10:12 10:12 WBC RBC Hgb Hct MCV MCH MCHC RDW Plt Count MPV Neut % (Auto) Lymph % (Auto) Ogle % (Auto) Eos % (Auto) Baso % (Auto) Neut # (Auto) Lymph # (Auto) Ogle # (Auto) Eos # (Auto) Baso # (Auto) Nucleated RBC % (a uto) Nucleated RBCs # PT INR Specimen Type Sample Site ABG pH ABG pCO2 ABG pO2 ABG HCO3 ABG Base Excess Tirso Test Hematocrit O2 Delivery Device FiO2 Chrome Tanning Drum Operator ID Sodium 140 Potassium 3.2 L Chloride 102 Carbon Dioxide 27 Anion Gap 14.2 BUN 10 Creatinine 0.7 GFR Calculation 87.2 L Glucose 349 H POC Glucose 331 Estimat Average Gl ucose Hemoglobin A1c Calculated Osmolal ity 300 H Lactic Acid Lactic Acid (Sepsi s) Calcium 8.9 Total Bilirubin AST ALT Alkaline Phosphata se Total Protein Albumin Globulin TSH 3.61 Urine Color Urine Appearance Urine pH Ur Specific Gravit y Urine Protein Urine Glucose (UA) Urine Ketones Urine Blood Urine Nitrate Urine Bilirubin Urine Urobilinogen Ur Leukocyte Elli ase Urine RBC Urine WBC Ur Squamous Epith Cells Amorphous Sediment Urine Bacteria Serum Ketones 01/29/20 01/29/20 01/29/20 10:12 10:12 06:43 WBC 6.0 RBC 4.79 Hgb 14.3 Hct 41.8 MCV 87.3 MCH 29.9 MCHC 34.2 RDW 12.4 Plt Count 128 L MPV 11.2 H Neut % (Auto) 68.3 Lymph % (Auto) 21.5 Ogle % (Auto) 6.3 Eos % (Auto) 2.8 Baso % (Auto) 0.8 Neut # (Auto) 4.08 Lymph # (Auto) 1.3 Ogle # (Auto) 0.4 Eos # (Auto) 0.2 Baso # (Auto) 0.1 Nucleated RBC % (a uto) 0 Nucleated RBCs # 0.0 PT INR Specimen Type Sample Site ABG pH ABG pCO2 ABG pO2 ABG HCO3 ABG Base Excess Tirso Test Hematocrit O2 Delivery Device FiO2 Chrome Tanning Drum Operator ID Sodium Potassium Chloride Carbon Dioxide Anion Gap BUN Creatinine GFR Calculation Glucose POC Glucose 339 Estimat Average Gl ucose 263 Hemoglobin A1c 10.8 H Calculated Osmolal ity Lactic Acid Lactic Acid (Sepsi s) Calcium Total Bilirubin AST ALT Alkaline Phosphata se Total Protein Albumin Globulin TSH Urine Color Urine Appearance Urine pH Ur Specific Gravit y Urine Protein Urine Glucose (UA) Urine Ketones Urine Blood Urine Nitrate Urine Bilirubin Urine Urobilinogen Ur Leukocyte Elli ase Urine RBC Urine WBC Ur Squamous Epith Cells Amorphous Sediment Urine Bacteria Serum Ketones 01/29/20 01/28/20 01/28/20 01:38 23:36 22:20 WBC RBC Hgb Hct MCV MCH MCHC RDW Plt Count MPV Neut % (Auto) Lymph % (Auto) Ogle % (Auto) Eos % (Auto) Baso % (Auto) Neut # (Auto) Lymph # (Auto) Ogle # (Auto) Eos # (Auto) Baso # (Auto) Nucleated RBC % (a uto) Nucleated RBCs # PT INR Specimen Type Sample Site ABG pH ABG pCO2 ABG pO2 ABG HCO3 ABG Base Excess Tirso Test Hematocrit O2 Delivery Device FiO2 Chrome Tanning Drum Operator ID Sodium Potassium Chloride Carbon Dioxide Anion Gap BUN Creatinine GFR Calculation Glucose POC Glucose 395 Estimat Average Gl ucose Hemoglobin A1c Calculated Osmolal ity Lactic Acid Lactic Acid (Sepsi s) 2.8 H Calcium Total Bilirubin AST ALT Alkaline Phosphata se Total Protein Albumin Globulin TSH Urine Color Yellow Urine Appearance Clear Urine pH 5 Ur Specific Gravit y 1.015 Urine Protein Neg Urine Glucose (UA) 4+ H Urine Ketones Negative Urine Blood Neg Urine Nitrate Negative Urine Bilirubin Neg Urine Urobilinogen Norm Ur Leukocyte Elli ase 1+ H Urine RBC 0-4 H Urine WBC 10-15 H Ur Squamous Epith Cells 0-4 H Amorphous Sediment Not Reportable Urine Bacteria Trace Serum Ketones 01/28/20 01/28/20 01/28/20 21:40 21:40 21:40 WBC RBC Hgb Hct MCV MCH MCHC RDW Plt Count MPV Neut % (Auto) Lymph % (Auto) Ogle % (Auto) Eos % (Auto) Baso % (Auto) Neut # (Auto) Lymph # (Auto) Ogle # (Auto) Eos # (Auto) Baso # (Auto) Nucleated RBC % (a uto) Nucleated RBCs # PT INR Specimen Type Sample Site ABG pH ABG pCO2 ABG pO2 ABG HCO3 ABG Base Excess Tirso Test Hematocrit O2 Delivery Device FiO2 Chrome Tanning Drum Operator ID Sodium 138 Potassium 3.8 Chloride 103 Carbon Dioxide 25 Anion Gap 13.8 BUN 12 Creatinine 0.8 GFR Calculation 74.7 L Glucose 570 H* POC Glucose Estimat Average Gl ucose Hemoglobin A1c Calculated Osmolal ity 308 H Lactic Acid 3.4 H Lactic Acid (Sepsi s) Calcium 9.1 Total Bilirubin 0.2 AST 17 ALT 31 Alkaline Phosphata se 73 Total Protein 6.3 L Albumin 3.8 Globulin 2.5 TSH Urine Color Urine Appearance Urine pH Ur Specific Gravit y Urine Protein Urine Glucose (UA) Urine Ketones Urine Blood Urine Nitrate Urine Bilirubin Urine Urobilinogen Ur Leukocyte Elli ase Urine RBC Urine WBC Ur Squamous Epith Cells Amorphous Sediment Urine Bacteria Serum Ketones Negative 01/28/20 01/28/20 01/28/20 21:40 21:40 20:22 WBC 5.9 RBC 4.62 Hgb 13.7 Hct 40.9 MCV 88.5 MCH 29.7 MCHC 33.5 RDW 12.7 Plt Count 131 MPV 10.9 H Neut % (Auto) 60.2 Lymph % (Auto) 28.1 Ogle % (Auto) 6.9 Eos % (Auto) 3.6 Baso % (Auto) 0.7 Neut # (Auto) 3.56 Lymph # (Auto) 1.7 Ogle # (Auto) 0.4 Eos # (Auto) 0.2 Baso # (Auto) 0.0 Nucleated RBC % (a uto) 0 Nucleated RBCs # 0.0 PT 12.30 INR 0.89 Specimen Type Arterial Sample Site Radial, right ABG pH 7.43 ABG pCO2 34.5 L ABG pO2 46.7 L ABG HCO3 23.0 ABG Base Excess -0.7 Tirso Test Pos Hematocrit 44.2 O2 Delivery Device Room air FiO2 21.0 Chrome Tanning Drum Operator ID [place]ro Sodium Potassium Chloride Carbon Dioxide Anion Gap BUN Creatinine GFR Calculation Glucose POC Glucose Estimat Average Gl ucose Hemoglobin A1c Calculated Osmolal ity Lactic Acid Lactic Acid (Sepsi s) Calcium Total Bilirubin AST ALT Alkaline Phosphata se Total Protein Albumin Globulin TSH Urine Color Urine Appearance Urine pH Ur Specific Gravit y Urine Protein Urine Glucose (UA) Urine Ketones Urine Blood Urine Nitrate Urine Bilirubin Urine Urobilinogen Ur Leukocyte Elli ase Urine RBC Urine WBC Ur Squamous Epith Cells Amorphous Sediment Urine Bacteria Serum Ketones Vitals: Last Vital Signs Temp 98.0 F 01/29/20 11:22 Pulse 92 01/29/20 11:22 Resp 18 01/29/20 11:22 BP 127/91 01/29/20 11:22 Pulse Ox 92 01/29/20 11:22 Discharge Plan Discharge Patient Disposition: Home Condition: Stable Prescriptions: New sulfamethoxazole-trimethoprim [Bactrim DS] 800-160 mg tablet 1 tab PO BID 14 Days Qty: 28 RF: 0 mupirocin 2 % ointment 1 applic TOPICAL BID Qty: 15 RF: 0 Continued levothyroxine 175 mcg tablet 175 mcg PO DAILY RF: 0 ChlorTabs 4 mg Tablet 4 - 8 mg PO PRN RF: 0 tizanidine 4 mg tablet 4 mg PO Q8H PRN (Reason: unknown) RF: 0 liothyronine 25 mcg tablet 12.5 mcg PO DAILY RF: 0 gabapentin 800 mg tablet 800 mg PO QID RF: 0 albuterol sulfate 90 mcg/actuation HFA aerosol inhaler 2 puff INHALATION Q4H PRN (Reason: Shortness Of Breath) RF: 0 duloxetine 30 mg capsule,delayed release(DR/EC) 30 mg PO DAILY RF: 0 oxycodone 10 mg tablet 10 mg PO QID PRN (Reason: Pain) RF: 0 Tresiba FlexTouch U-200 200 unit/mL (3 mL) insulin pen 80 unit SUBCUT DAILY RF: 0 Fiasp FlexTouch U-100 Insulin 100 unit/mL (3 mL) insulin pen See Rx Instructions .ROUTE .COMPLEX RF: 0 Trelegy Ellipta 100-62.5-25 mcg blister with device 1 inh INHALATION DAILY RF: 0 Discontinued indomethacin 50 mg capsule 50 mg PO BID RF: 0 Discharge Orders: Discharge Order (Routine); Ordered 01/29/20 Ordered By: Oskar Fitch Referrals: Deondre Gonzalez DPM [Physician] - 4-7 days NOT ON FILE,DOCTOR [Occupational Therapist] - Discharge Diet: Diabetic Discharge Activity: Limit activity as instructed Activity Restrictions/Additional Instructions: Take all medicine as prescribed Follow-up with your primary care provider 3 to 5 days Follow-up with podiatry next week Wound care instructions per podiatry BMP on follow-up with primary care provider. Discharge Attestations Time Spent in Discharge Care*: greater than 30 min Quality Metrics Clinical Quality Measures During this hospital stay, did patient experience: None Coding Level of Care Code Acute Adjuster Arbitrator for Soterog Fwd Diagnoses Diabetic peripheral neuropathy E11.42 Chronic ulcer of toe of right foot with fat layer exposed L97.512 Chronic ulcer of toe of left foot with fat layer exposed L97.522 Onycholysis L60.1
--- NOTE | 2020-01-29 14:42 | PC.CHAP ---
Pastoral Care Encounter/Spiritual Assessment Type of Contact [] Declined grocery stocker visit [] Patient/Family/Request visit [] Outpatient visit [] Follow-up visit [] Physician referral [] Code/Alert [X] Routine visit [] Staff referral [] Actively dying [] Patient sleeping [] Family support [] [] Out of room [] Palliative care [] [] Receiving care in room [] Pre-surgical visit [] Trauma [] Long length of stay [] ICU visit [] Other: Relational/Emotional Strength [] Patient feels connected with others/family/visitors/staff [] Distress [] Loneliness/isolation [] Abandonment Spirituality of Patient [] Person of Kim [] Attends Evangelical of their Kim [] Believes in Prayer [] Reads Bible or Yarsanism materials [] There are Spiritual issues to be addressed Engineering Designer Interventions [] Prayer [] Active listening [] Non-anxious presence [] Spiritual/emotional support [] Crisis/trauma care [] Spiritual counseling [] Bereavement support [] Provided bereavement packet [] Provided Bible/devotional materials [] Provided toy/stuffed animal, coloring book to patient or family member [] Provided Communion [] Anointing/[place] [] Salvation [] Completed spiritual assessment [] Other: Impact on Illness or Injury [] Angry [] Fearful [] Anxious [] Often cries [] Exhaustion [] Unable to work [] Unable to attend adventism [] Unable to walk/stand [] Unable to read [] Unable to drive [] Unable to eat/drink [] Unable to sleep [] Unable to be with family [] Patient intubated [] Other: Summary Time spent with patient
--- NOTE | 2020-01-29 15:30 | PC.NURSE ---
Reviewed patient discharge with patient. Patient verbalized understanding of discharge instructions including follow up appointments and new prescriptions. Patient is A&Ox3. Respirations even and non-labored on room air. Patient is wearing post-op shoes at discharge. IV was removed intact. IV site is asymptomatic. Patient wheel chaired to private car. Patient will pick her medications up at the [facility] pharmacy drive [facility].
== END 2020-01-29 15:30 | disposition home or self-care (01) ==
LOC: ER 23:11 → MEDSURG 01-29 02:13
PROVIDERS: Emergency Medicine; Admitting Provider Family Medicine; Visit Provider Internal Medicine
DX: E11.621 Type 2 diabetes mellitus with foot ulcer (principal); L97.522 Non-pressure chronic ulcer of other part of left foot with fat layer exposed; L97.512 Non-pressure chronic ulcer of other part of right foot with fat layer exposed; L60.1 Onycholysis; M54.42 Lumbago with sciatica, left side; M54.41 Lumbago with sciatica, right side; G89.29 Other chronic pain; E11.40 Type 2 diabetes mellitus with diabetic neuropathy, unspecified; I10 Essential (primary) hypertension; E03.9 Hypothyroidism, unspecified; E11.65 Type 2 diabetes mellitus with hyperglycemia; E87.2 Acidosis; F17.210 Nicotine dependence, cigarettes, uncomplicated; Z79.4 Long term (current) use of insulin; Z88.5 Allergy status to narcotic agent
CPT/HCPCS: 11730; 11732; 12345; 36415; 36416; 36600; 71045; 73630; 80048; 80053; 81001; 82009; 82803; 82962; 83036; 83605; 84443; 85025; 85610; 87040; 93925; 94640; 96361; 96365; 96367; 96372; 96375; 99283; 99285; G0378; J1815; J1940; J2405; J2543; J3370; J7030; J7050; J7611